=== PATIENT | female | born 1940 | race Caucasian/White ===

== ENCOUNTER 2017-09-11 16:19 | Inpatient (IN) | payer OTHER ==
[~2017-09-11] VITALS: Ht 162.6 cm; Wt 110.2 kg
--- NOTE | ~2017-09-11 | EKG ---
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
--- NOTE | ~2017-09-11 | EKG ---
[address] [place] [address] ELECTROCARDIOGRAM REPORT Name: GONZÁLEZ BOOKER Room #: 351- DIS IN M.R.#: [id number] Admission: 09/11/17 Attend Phys: Edgar Rodrigues MD Discharge: 09/14/17 Date of : 42 Report #: [id number] THIS REPORT FOR: //name// [facility] Test Date: 2017-09-14 Test Time: 10:48:20 Pat Name: GONZÁLEZ BOOKER Department: Room: [facility] Gender: F School Coordinator: ZAHRA : 1940 Requested By: Kyle Billings Order Number: [id number] MD: Davide Cottrell Measurements Intervals [place] Rate: 81 P: -4 MI: 226 QRS: -49 QRSD: 82 T: 43 QT: 399 QTc: 464 Interpretive Statements Sinus rhythm Atrial premature complex Prolonged MI interval Poor R wave progression Compared to ECG 09/13/2017 08:28:15 No significant change was found Electronically Signed On 09-14-2017 17:07:48 CDT by Davide Cottrell [email or web address] <ELECTRONICALLY SIGNED> By: Davide Cottrell MD, [facility] 09/14/17 1707 1048 1048 Davide Cottrell MD, [facility] /EPI
--- NOTE | ~2017-09-11 | HC ---
[facility] [place] [address] CONSULTATION Name: GONZÁLEZ BOOKER SRINIVASAN Room #: 351-P [facility] IN M.R.#: [id number] Admission: 09/11/17 Attend Phys: Edgar Rodrigues MD Discharge: 09/14/17 Date of : 42 Report #: [id number] THIS REPORT FOR: //name// CC: LOPEZ Rodrigues DATE OF SERVICE: 09/12/2017 HISTORY OF PRESENT ILLNESS: The patient is a 76-year-old single white female, I was asked to see in the hospital today after she had an episode of atrial fibrillation. The patient has had multiple hospitalizations here at [facility]. She actually had a heart catheterization here in 2003 that showed no significant coronary artery disease. She has a history of paroxysmal atrial fibrillation, but apparently has never been cardioverted or anticoagulated. She was here in 2012 with hemoptysis felt to be secondary to bronchitis. She has a long history of smoking. Her last hospitalization here at [facility] was in April 2016 when she had intractable pain secondary to spinal stenosis. She has a long history of lower extremity edema and stasis dermatitis. The patient states that she is not very active and uses a walker. She just quit smoking about 3 months ago. Recently, she has had increasing swelling of her feet. She also noticed some redness of the right lower extremity. Paramedics were called and she was brought here to [facility] yesterday by ambulance. She did note some chest tightness, recently arrest. It was not related to food. She does get short of breath with exertion. She denied any recent palpitations or syncope. She has had no recent fever. When she came to the hospital she was noted to be in atrial fibrillation. She was started on IV diltiazem. She converted to sinus rhythm. I was asked to see her for further evaluation and treatment. PAST MEDICAL HISTORY: Otherwise significant for hysterectomy, tonsillectomy, hypertension, diabetes. MEDICATIONS: On admission consisted of amlodipine, carvedilol, insulin, Xanax, lisinopril, atorvastatin, Lasix, Spiriva, aspirin. ALLERGIES: She has no known drug allergies. FAMILY HISTORY: Her sister of heart disease. SOCIAL HISTORY: She is , lives in [place], [place] by herself. 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 Quit smoking several months ago. No alcohol abuse. REVIEW OF SYSTEMS: She has had no history of stroke. She does have COPD. No history of liver disease. She has history of chronic kidney disease. 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 She has no history of cancer. PHYSICAL EXAMINATION: GENERAL: Revealed an elderly female sitting in a chair. She appeared in no acute distress. VITAL SIGNS: She had a blood pressure of 140/80, pulse is 70. She is afebrile. HEENT: She was anicteric, conjunctiva pink. Mucous membranes appeared dry. NECK: Veins did not appear distended. No carotid bruits. CHEST: Revealed distant breath sounds. CARDIAC: Regular rate and rhythm. No significant murmur. ABDOMEN: Obese, soft, nontender. EXTREMITIES: Had 1+ edema below the knees. The right lower anterior tibial area was erythematous. No dorsalis pedis pulse could be palpated. SKIN: Cool and dry. NEUROLOGIC: Nonfocal. LABORATORY DATA: ECG on admission yesterday showed atrial fibrillation, rapid ventricular response rate, left axis deviation, septal Q-waves. She had an echocardiogram earlier today that showed ejection fraction 60%, aortic sclerosis. Her x-rays so far, she had a portable chest x-ray on admission that showed normal heart size and clear lung mcgee. Venous duplex scan of her legs today showed no evidence of DVT. Previous CT scan of the head in 2016 showed atrophy, but no acute abnormality. Her lab work, sodium 142, potassium 4, BUN 19, creatinine 1.2, glucose 171. Liver function studies were normal. Troponin 0.04. BNP 258. White blood cell count 8.9, hemoglobin 11. IMPRESSION AND RECOMMENDATIONS: 1. Paroxysmal atrial fibrillation. I would recommend anticoagulation. I would recommend switching from carvedilol to sotalol. 2. Cellulitis. 3. Edema. Suspect venous insufficiency. 4. Hypertension. The patient has been on calcium eda, beta eda and JUANI inhibitor. 5. Diabetes. 6. Hyperlipidemia. The patient is on a statin drug 7. Previous tobacco abuse. 8. Chronic obstructive pulmonary disease. <ELECTRONICALLY SIGNED> By: Kyle Billings MD, [facility] 09/15/17 0742 1705 193 Kyle Billings MD, FAC /nt
--- NOTE | ~2017-09-11 | 2DMMODE ---
[facility] [place] [address] 2 D/M-MODE ECHOCARDIOGRAM Name: GONZÁLEZ BOOKER Room #: 351-P ADM IN M.R.#: [id number] Admission: 09/11/17 Attend Phys: Edgar Rodrigues, Discharge: Date of : 42 Date of Service: 09/12/17 0931 Report #: [id number] THIS REPORT FOR: //name// APPROVED REPORT Study performed: 09/12/2017 08:34:05 EXAM: Comprehensive 2D, Doppler, and color-flow Echocardiogram Status: routine BSA: 2.12 HR: 97 bpm BP: 142/57 mmHg Rhythm: Irregular Other Information Study Quality: Adequate/low parasternal fuel Indications Dyspnea 2D Dimensions RVDd: 35.02 mm LVEF(%): 70.92 (>50%) IVSd: 12.55 (7-11mm) LVOT Diam: 21.01 (18-24mm) LVDd: 43.69 mm PWd: 11.72 (7-11mm) LVDs: 26.20 (25-40mm) Aortic Root: 30.78 mm Trivedi's LVEF: 70.92 % Volumes Left Atrial Volume (Systole) Single Plane 4CH: 49.58 mL Single Plane 2CH: 79.48 mL LA ESV Index: 32.00 mL/m2 Aortic Valve AoV Peak Wilman.: 1.91 m/s AO Peak Gr.: 14.64 mmHg LVOT Max P.36 mmHg LVOT Max V: 1.16 m/s ANANYA Vmax: 2.10 cm2 Mitral Valve E/A Ratio: 0.9 MV Decel. Time: 315.83 ms MV E Max Wilman.: 1.15 m/s [facility] [place] [address] [place] [address] 2 D/M-MODE ECHOCARDIOGRAM Name: GONZÁLEZ BOOKER [facility] Room #: 351-P [facility] IN .R.#: [id number] Admission: 09/11/17 Attend Phys: Edgar Rodrigues, Discharge: Date of : 42 Date of Service: 09/12/17 0931 Report #: [id number] MV A Wilman.: 1.33 m/s MV PHT: 91.59 ms IVRT: 55.36 ms Pulmonary Valve PV Peak Wilman.: 1.05 m/s PV Peak Gr.: 4.38 mmHg Pulmonary Vein P Vein S: 0.81 m/s P Vein D: 0.63 m/s P Vein S/D Ratio: 1.29 Tricuspid Valve RAP Estimate: 10.00 mmHg Left Ventricle The left ventricle is normal size. There is normal LV segmental wall motion. Mild concentric left ventricular hypertrophy. Left ventricular systolic function is normal. LVEF is 60-65%. Mild diastolic dysfunction is present (impaired relaxation pattern). Right Ventricle The right ventricle is normal size. The right ventricular systolic function is normal. Atria The left atrium size is normal. The right atrium size is normal. Aortic Valve The Aortic valve is mildly sclerotic. No aortic regurgitation is present. There is no aortic valvular stenosis. Mitral Valve The mitral valve is normal in structure. Mild mitral annular calcification. There is no mitral valve regurgitation noted. No evidence of mitral valve stenosis. Tricuspid Valve The tricuspid valve is normal in structure. There is no tricuspid valve regurgitation noted. Unable to assess PA pressure. Pulmonic Valve Pulmonic valve is not well visualized. [facility] [address] [place] [address] 2 D/M-MODE ECHOCARDIOGRAM Name: GONZÁLEZ BOOKER SRINIVASAN Room #: 351-P ADM IN M.R.#: [id number] Admission: 09/11/17 Attend Phys: Edgar Rodrigues, Discharge: Date of : 42 Date of Service: 09/12/17 0931 Report #: [id number] Great Vessels The aortic root is normal in size. Ascending aorta is not well visualized. IVC is dilated and collapses >50% with inspiration. Pericardium There is no pericardial effusion. <Conclusion> The left ventricle is normal size. LVEF is 60-65%. The Aortic valve is mildly sclerotic. The mitral valve is normal in structure. Mild mitral annular calcification. There is no mitral valve regurgitation noted. No evidence of mitral valve stenosis. The tricuspid valve is normal in structure. There is no tricuspid valve regurgitation noted. Unable to assess PA pressure. Pulmonic valve is not well visualized. Ascending aorta is not well visualized. There is no pericardial effusion. <ELECTRONICALLY SIGNED> By: Teo Baugh MD 09/12/17930 0 0 Teo Baugh MD /INF
--- NOTE | ~2017-09-11 | EKG ---
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: MAURICIO : 1940 Requested By: Kyle Billings Order Number: [id number] MD: Sergei Joseph Measurements Intervals [place] Rate: 89 P: -56 MD: 209 QRS: -56 QRSD: 84 T: 71 QT: 396 QTc: 482 Interpretive Statements Sinus or ectopic atrial rhythm Atrial premature complex Inferior infarct, old Anteroseptal infarct, old Compared to ECG 09/11/2017 16:37:53 Ectopic atrial rhythm now present Atrial premature complex(es) now present Atrial fibrillation no longer present Left anterior fascicular block no longer present Myocardial infarct finding still present Electronically Signed On 09-13-2017 8:51:01 CDT by Sergei Joseph [email or web address] <ELECTRONICALLY SIGNED> By: Sergei Joseph MD 09/13/17850 7 7 Sergei Joseph MD /EPI
[~2017-09-11 16:19] MED LIST: ADVAIR HFA 1112 UNIT INH; ADVAIR HFA115 MCG/21 INH; ALBUTEROL2.5 MG/31 INH; ASPIR 8181 M1 PO; AZITHROMYCIN 2250 MG PO; CHANTIX1 MG PO; COREG6.25 MG PO; DUONEB 2.5-0.5 M3 ML INH; GLUCOPHAGE XR500 MG PO; GLUCOPHAGE500 MG PO; HUMALOG100 UNIT/1 SUBQ; HYDROCODONE-APA1 TA1 PO; K-TAB10 MEQ PO; KEFLEX500 MG PO; LASIX 20 MG TAB20 MG PO; LASIX 40 MG TAB40 M2 PO; LEVAQUIN 750 M750 MG PO; LEVEMIR SUBQ; LIDODERM 5%1 PATC1 TRANSDERM; LIPITOR20 MG PO; LISINOPRIL20 MG PO; METOPROLOL SUCC25 M1; NAPROSYN500 MG PO; NORVASC5 MG PO; NYSTATIN-TRIAMC15 GM TOP; PREDNISONE 10 M10 M1 PO; PREDNISONE 20 M20 MG PO; PRINIVIL40 MG PO; SPIRIVA18 MCG INH; TOPROL XL25 MG PO; TOPROL XL50 MG PO; TUSSIONEX PENN473 ML PO; VENTOLIN HFA 1818 GM INH; VERAPAMIL ER240 M1 PO; XANAX 0.5 MG0.5 M1 PO; ZOLOFT50 MG PO
[2017-09-11 16:20] VITALS: BP 192/84
[2017-09-11 16:55] LABS: ABSOLUTE NEUTROPHILS 8.6 thou/uL (1.4-8.2); BASOPHILS 0.9 % (0.0-2.0); EOSINOPHILS 2.1 % (0.0-3.0); HEMATOCRIT 36.8 % (37.0-47.0); LYMPHOCYTES 17.5 % (24.0-44.0); MCH 28.1 pg (26.0-34.0); MCHC 32.5 g/dL (28.0-37.0); MCV 86.2 fL (80.0-100.0); MONOCYTES 6.7 % (1.0-8.0); PLATELET COUNT 264 thou/uL (150-400); POLYS 72.8 % (36.0-66.0); RBC 4.27 mil/uL (4.20-5.00); RDW 14.6 % (10.5-14.5); WBC 11.8 thou/uL (4.0-11.0)
[2017-09-11 16:56] LABS: MANUAL DIFF NO
[2017-09-11] MEDS ORDERED: NEURONTIN 300300 M1 PO (17:05)
[2017-09-11 17:06] LABS: ANION GAP 7 mmol/L (7-16); BUN 21 mg/dL (7-18); CHLORIDE 106 mmol/L (98-107); CO2 27 mmol/L (21-32); GLUCOSE 228 mg/dL (74-106); POTASSIUM 3.7 mmol/L (3.5-5.1); SODIUM 140 mmol/L (136-145)
[2017-09-11 17:14] LABS: ALKALINE PHOSPHATASE 155 U/L (46-116); SGOT 20 U/L (15-37); SGPT 20 U/L (30-65); TOTAL BILIRUBIN 0.3 mg/dL (<0.1-1.0); TOTAL PROTEIN 7.3 g/dL (6.4-8.2); TROPONIN-I < 0.04 ng/mL (<0.04-0.07)
[2017-09-11 18:15] VITALS: BP 143/79
[2017-09-11 19:01] VITALS: BP 147/85
[2017-09-11 19:27] VITALS: BP 143/74
[2017-09-12 00:35] VITALS: BP 119/40
[2017-09-12 04:03] VITALS: BP 126/46
[2017-09-12 05:46] LABS: HEMATOCRIT 32.7 % (37.0-47.0); HEMOGLOBIN 11.1 gm/dL (12.0-15.0); MCH 29.2 pg (26.0-34.0); MCHC 33.9 g/dL (28.0-37.0); MCV 86.1 fL (80.0-100.0); RBC 3.8 mil/uL (4.20-5.00); RDW 14.6 % (10.5-14.5); WBC 8.9 thou/uL (4.0-11.0)
[2017-09-12 06:04] LABS: ANION GAP 7 mmol/L (7-16); BUN 19 mg/dL (7-18); CALCIUM 8.6 mg/dL (8.5-10.1); CHLORIDE 109 mmol/L (98-107); CO2 26 mmol/L (21-32); CREATININE 1.2 mg/dL (0.6-1.0); GLUCOSE 171 mg/dL (74-106); SODIUM 142 mmol/L (136-145); TROPONIN-I < 0.04 ng/mL (<0.04-0.07)
[2017-09-12 07:17] VITALS: BP 142/57
[2017-09-12 11:36] VITALS: BP 130/56
[2017-09-12 15:16] VITALS: BP 128/63
[2017-09-12 20:00] VITALS: BP 124/62
[2017-09-12 21:25] LABS: PROTIME 10.6 Seconds (9.3-11.4)
[2017-09-13 02:45] VITALS: BP 129/47
[2017-09-13 06:24] LABS: PROTIME 10.5 Seconds (9.3-11.4)
[2017-09-13 06:25] LABS: CALCIUM 8.9 mg/dL (8.5-10.1); CREATININE 1.2 mg/dL (0.6-1.0)
[2017-09-13 08:42] VITALS: BP 127/55
[2017-09-13 14:20] VITALS: BP 135/56
[2017-09-13 17:30] VITALS: BP 178/82
[2017-09-13 19:22] VITALS: BP 136/57
[2017-09-14 03:20] VITALS: BP 139/64
[2017-09-14 05:32] LABS: INR 1.1; PROTIME 11.4 Seconds (9.3-11.4)
[2017-09-14 07:16] VITALS: BP 151/77
[2017-09-14 11:55] VITALS: BP 135/58
[2017-09-14] MEDS ORDERED: SORINE 80 MG TA80 M1 PO (12:22)
[2017-09-14] MEDS ORDERED: CLEOCIN HCL150 MG PO (12:29)
[2017-09-14] MEDS ORDERED: COUMADIN 5 MG TA5 M1 PO (12:30)
[2017-09-14 12:44] VITALS: BP 135/58
== END 2017-09-14 14:44 | disposition home or self-care (01) | DRG 603 ==
LOC: ER 16:19 → 3W 17:59 → EROBS 17:59 → 3W 19:02
PROVIDERS: Internal Medicine; Internal Medicine Cardiovascular Disease; Physician Assistant
DX: L03.115 Cellulitis of right lower limb (principal); Z68.41 Body mass index [BMI] 40.0-44.9, adult; E11.9 Type 2 diabetes mellitus without complications; E78.00 Pure hypercholesterolemia, unspecified; I10 Essential (primary) hypertension; J44.9 Chronic obstructive pulmonary disease, unspecified; I48.0 Paroxysmal atrial fibrillation; I87.8 Other specified disorders of veins; F41.9 Anxiety disorder, unspecified; E66.9 Obesity, unspecified; Z87.891 Personal history of nicotine dependence; Z79.4 Long term (current) use of insulin; Z79.51 Long term (current) use of inhaled steroids; Z79.82 Long term (current) use of aspirin; Z79.899 Other long term (current) drug therapy; Z28.21 Immunization not carried out because of patient refusal; Z90.710 Acquired absence of both cervix and uterus; Z82.49 Family history of ischemic heart disease and other diseases of the circulatory system
CPT/HCPCS: 10779

== ENCOUNTER 2020-06-06 13:00 | Inpatient (IN) | payer OTHER ==
[~2020-06-06] VITALS: Ht 162.6 cm; Wt 105.2 kg
--- NOTE | ~2020-06-06 | EMS ---
[address] [address] EMS Patient Care Report Name: GONZÁLEZ BOOKER Room #: 462-P [facility] IN M.R.#: [id number] Admission: 06/06/20 Attend Phys: Keo Calderon MD Discharge: 06/12/20 Date of : 42 Report #: [id number] THIS REPORT FOR: //name// Report Transmitted: 06/14/2020 13:30 EMS Care Summary [place], [place]/[facility] Incident [id number] @ 06/06/2020 12:19 Incident Location [id number] [place] [address] Patient GONZÁLEZ BOOKER Female, 79 Years 1940 Patient Address [address] [place], [place] [id number] Patient History Diabetes,Hypertension (HTN),Hyperlipidemia,Type 2 Diabetes, Patient Allergies Sulfa,Other drug allergy, Patient Medications Lisinopril, Amlodipine, Atorvastatin, Albuterol, Novolog, Advair, ASA, Alprazolam, Ventolin, Levemir, Spiriva, Furosemide, Gabapentin, Chief Complaint I fell and have been on the floor all night Disposition Transported No Lights/[place] Dispatch Reason Falls Transported To [facility] Narrative Called to the scene for a fall. Upon arrival, P42 on the scene. Pt is ARROYO x 3 sitting on the ground. It was reported she fell last night tripping over her [facility] [address] [place] [address] EMS Patient Care Report Name: GONZÁLEZ BOOKER Room #: 462-P [facility] IN M.R.#: [id number] Admission: 06/06/20 Attend Phys: Keo Calderon MD Discharge: 06/12/20 Date of : 42 Report #: [id number] chair. She says she hurts all over, but nothing new. She is incontinent. She was moved to the EMS cot and loaded into the ambulance w/o incident. Vitals obtained. 20g IV & D-stick. 500cc NS given for elevated BS levels. Vitals repeated. En route: no changes. RR to [facility]. Vitals repeated. Arrived: pt taken to ER #4 and moved to their bed w/o incident. Pt care & report to ER staff. Initial Vitals @12:38P: 97,R: 16,BP: 183/77,Pain: 4/10,GCS: 15,SpO2: 97,Revised Trauma: 12, @12:52P: 79,R: 16,BP: 165/80,Pain: 4/10,GCS: 15,Glucose: 343,SpO2: 96,Revised Trauma: 12, @12:42P: 99,R: 16,BP: 156/105,Pain: 4/10,GCS: 15,Glucose: -2,CO: 0,SpO2: 98,Revised Trauma: 12, Assessments @12:29MENTAL:Person Oriented,Time Oriented,Event Oriented,Place Oriented,SKIN:HEENT:LUNG SOUNDS:ABDOMEN:PELVIS//GI:Incontinence,EXTREMITIES:Left Arm: No Abnormalities,Right Arm: No Abnormalities,Left Leg: No Abnormalities,Right Leg: No Abnormalities,PULSE:NEURO: Impression Diabetic Hyperglycemia Procedures @12:40Normal Saline (.9% NaCl) 500cc (20 ga) Site: Forearm-RightResponse: UnchangedSucceeded@12:34StretcherResponse: Unchanged@12:29ALS AssessmentResponse: UnchangedSucceeded Timeline 12:17,Call Received 12:17,Dispatch Notified 12:19,Dispatched 12:19,En Route 12:27,On Scene 12:29,At Patient 12:29,ALS Assessment,Response: UnchangedSucceeded, 12:34,Stretcher,Response: Unchanged 12:38,BP: 183/77 M,PULSE: 97,RR: 16 R,SPO2: 97 Ox,ETCO2: ,BG: ,PAIN: 4,GCS: 15, 12:40,Normal Saline (.9% NaCl) 500cc 20 ga Site: Forearm-Right,Response: UnchangedSucceeded, 12:42,BP: 156/105 M,PULSE: 99,RR: 16 R,SPO2: 98 Ox,ETCO2: ,BG: -2,PAIN: 4,GCS: 15, 12:43,Depart Scene 12:52,BP: 165/80 M,PULSE: 79,RR: 16 R,SPO2: 96 Ox,ETCO2: ,B,PAIN: 4,GCS: 15, [address] [address] EMS Patient Care Report Name: GONZÁLEZ BOOKER [facility] Room #: 462-P DIS IN M.R.#: [id number] Admission: 06/06/20 Attend Phys: Keo Calderon MD Discharge: 06/12/20 Date of : 42 Report #: [id number] 12:55,At Destination 13:18,Call Closed Disclaimer v1.1 Copyright 2020 [employer] This EMS Care Summary contains data elements from the applicable legal record (which may be displayed differently). It is designed to provide pertinent information for the following purposes: continuity of care, clinical quality, and state data reporting. The complete legal record is available to ED staff and administrators of the receiving hospital in [employer]'s Patient Tracker. All data is provided "as is."
[2020-06-06 13:00] VITALS: BP 165/74
[~2020-06-06 13:00] MED LIST changes: +CLEOCIN HCL150 MG PO; +COUMADIN 5 MG TA5 M1 PO; +NEURONTIN 300300 M1 PO; +SORINE 80 MG TA80 M1 PO
[2020-06-06 13:25] LABS: ABSOLUTE NEUTROPHILS 7.3 thou/uL (1.4-8.2); BASOPHILS 0.7 % (0.0-2.0); EOSINOPHILS 0.3 % (0.0-3.0); HEMATOCRIT 39.4 % (37.0-47.0); HEMOGLOBIN 13.1 gm/dL (12.0-15.0); LYMPHOCYTES 12.6 % (24.0-44.0); MCH 29.6 pg (26.0-34.0); MCHC 33.3 g/dL (28.0-37.0); MCV 88.9 fL (80.0-100.0); MONOCYTES 7.8 % (1.0-8.0); PLATELET COUNT 287 thou/uL (150-400); POLYS 78.6 % (36.0-66.0); RBC 4.44 mil/uL (4.20-5.00); RDW 14.9 % (10.5-14.5); WBC 9.3 thou/uL (4.0-11.0)
[2020-06-06 13:40] LABS: URINE BILIRUBIN NEGATIVE (Negative); URINE BLOOD 2+ (Negative); URINE CLARITY SL HAZY; URINE COLOR YELLOW; URINE GLUCOSE-RANDOM* 3+ (Negative); URINE KETONES NEGATIVE (Negative); URINE LEUKOCYTES-REFLEX 2+ (Negative); URINE NITRITE-REFLEX NEGATIVE (Negative); URINE PROTEIN (DIPSTICK) 1+ (Negative); URINE UROBILINOGEN 0.2 E.U./dl (0.2-1.0)
[2020-06-06 13:44] LABS: CALCIUM 9.7 mg/dL (8.5-10.1); CREATININE 1.8 mg/dL (0.6-1.0); MAGNESIUM 2.4 mg/dL (1.8-2.4); POTASSIUM 5.1 mmol/L (3.5-5.1)
[2020-06-06 13:52] LABS: BACTERIA-REFLEX >30 Many /HPF (None Seen); CASTS None Seen /LPF (None Seen); SQUAMOUS 0-3 Few /LPF (0-3); URINE RBC 3-10 Few /HPF (0-2); URINE WBC-REFLEX >25 Many /HPF (0-5)
[2020-06-06 13:54] LABS: CRYSTALS None Seen /LPF (None Seen)
[2020-06-06 14:27] LABS: PROTIME 10.6 Seconds (9.3-11.4)
[2020-06-06] MEDS ORDERED: XARELTO10 M1 PO (14:28)
--- NOTE | 2020-06-06 16:46 | EKG ---
[facility] [place] [address] ELECTROCARDIOGRAM REPORT Name: GONZÁLEZ BOOKER SRINIVASAN Room #: REG M.R.#: [id number] Admission: 06/06/20 Attend Phys: Discharge: Date of : 42 Report #: [id number] THIS REPORT FOR: cc: Jean Pierre Sanford MD, Douglas James MD Lundgren,Davide White MD [facility] THIS REPORT FOR: //name// [facility] ED Test Date: 2020-06-06 Test Time: 13:25:13 Pat Name: GONZÁLEZ BOOKER Department: Room: Gender: F Trimming Operator: [facility] : 1940 Requested By: Mason De La Paz Order Number: [id number] MD: Davide Cottrell Measurements Intervals [place] Rate: 98 P: -52 OR: 121 QRS: -53 QRSD: 90 T: 73 QT: 370 QTc: 473 Interpretive Statements Sinus rhythm Left anterior fascicular block Poor R wave progression Compared to ECG 09/14/2017 10:48:20 No significant change was found Electronically Signed On 06-06-2020 16:46:14 CDT by Davide Cottrell [email or web address] <ELECTRONICALLY SIGNED> By: Davide Cottrell MD, FACC 06/06/20 1646 1325 1325 Davide Cottrell MD, [facility] /EPI
[2020-06-06 18:13] VITALS: BP 134/41
[2020-06-06 18:45] VITALS: BP 113/48
--- NOTE | 2020-06-06 20:56 | NUR ---
PATIENT ARRIVED ON THE UNIT AT 1920 FROM ER, ADMITTED FOR UTI, VENECIA, HYPERGLYCEMIA, AND GENERALIZED WEAKNESS, SHE FELL AT HOME LAST NIGHT. PATIENT ALERT WITH SOME CONFUSION. PATIENT C/O PAIN WITH GERMAN. LEGS, MORPHINE 4 MG IV GIVEN PRIOR TO COMING UP FROM ER. REPORT FROM MARIKA/RN. ADMISSION DONE, WILL REPORT OFF TO ROSY/RN.
--- NOTE | 2020-06-07 04:31 | NUR ---
FALL PRECAUTION IN PLACE. ASSESSMENT CHARTED. PT DENIED ANY SIGNIFICANT PAIN. PT DENIED NAUSEA OR SOA. ORDERS RECEICED AND STARTED. PT WAS ABLE TO GET COMFORTABLE SLEEP PART OF THE SHIFT. VSS AND NO S/S OF ACUTE DISTRESS. WILL CONTINUE TO MONITOR.
[2020-06-07 04:46] VITALS: BP 117/52
[2020-06-07 05:52] LABS: HEMATOCRIT 34.7 % (37.0-47.0); HEMOGLOBIN 11.5 gm/dL (12.0-15.0); MCH 29.7 pg (26.0-34.0); MCV 89.9 fL (80.0-100.0); RBC 3.86 mil/uL (4.20-5.00); RDW 15.2 % (10.5-14.5); WBC 7.5 thou/uL (4.0-11.0)
[2020-06-07 06:22] LABS: ALBUMIN 2.5 g/dL (3.4-5.0); CALCIUM 8.5 mg/dL (8.5-10.1); CREATININE 1.5 mg/dL (0.6-1.0); POTASSIUM 4.7 mmol/L (3.5-5.1); TOTAL BILIRUBIN 0.3 mg/dL (0.2-1.0); TOTAL PROTEIN 6.1 g/dL (6.4-8.2)
[2020-06-07 08:00] VITALS: BP 119/50
--- NOTE | 2020-06-07 11:49 | NUR ---
Received awake on bed. Due medications given as prescribed, able to swallow meds w/o difficulty. On room air. Vital signs stable. On heart healthy diet- tolerating well; no nausea, no vomiting and no abdominal pain noted; diet modified to Heart healthy, carb controlled diet. A+Ox4, forgetful; re-oriented from time to time. On blood sugar monitoring- taken and recorded; with sliding scale insulin ordered- given as prescribed. Continent of bowel and bladder- able to use bedside commode, with gait belt and moderate assist. With NS at 100cc/hr, infusing well at L FA. With bruises at forearm from fall at home, not bleeding, no signs of infection noted. Falls bundle in place. Assisted in ADLs. With consult to [employer] Plant Operator- US called in consult, pt seen and examined by Dr Jimenez. Pt seen and examined by Dr Calderon- for PT/OT/ST evaluation- orders made; a./w pt to be seen. Complained of pain, due PRN pain meds given as prescribed. Pt's daughter Brook Anton called this AM, update given. With pharmacist consult for medication reconcilation by night warehouse selector nurse, med rec done at ER but some meds missing as per night warehouse selector nurse and pt unable to recall meds. Able to sit out on the chair, falls bundle in place. Pt seen and examined by ST, passed swallow test- therapist suggested for GI consult- Dr Calderon informed, a/w orders. To continue monitoring patient.
[2020-06-07 15:18] VITALS: BP 111/51
--- NOTE | 2020-06-07 16:23 | NUR ---
PT ADMITTED RELATED TO UTI, VENECIA, HYPERGLYCEMIA, GENERALIZED WEAKNESS. CM REVIEWED CHART AND SPOKE WITH CARE TEAM. CM MET WITH PT AT BEDSIDE THIS DAY. PT IS A&O X4. CM ROLE INTRODUCED. PT INDICATED SHE LIVES ALONE IN [facility]. SHE INDICATED SHE HAS ELEVATOR ACCESS. 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 PT INDICATED SHE HAD [facility] IN THE PAST. PT INDICATED SHE HAS HER MEDS PACKED UP BY [facility]. PT INDICATED SHE WOULD BE RECEPTIVE TO HH OR POST ACUTE CARE STAY WHATEVER IS RECOMMENDED. CM TO FOLLOW INDICATED WITH DC PLANNING.
[2020-06-07 20:55] VITALS: BP 138/58
[2020-06-08 03:06] LABS: GLYCOHEMOGLOBIN (HGB A1C) 11.9 % (4.8-5.6)
--- NOTE | 2020-06-08 05:03 | NUR ---
ASSUMED CARE OF PT AT 1900HRS. PT AOX4 WITH SOME FORGETFULNESS. FALL PRECAUTION IN PLACE. ASSESSMENT CHARTED. PT DENIED NAUSEA OR SOA. PT WAS ABLE TO GET COMFORTABLE AND SLEEP PART OF THE SHIFT. VSS AND NO S/S OF ACUTE DISTRESS. WILL CONTINUE TO MONITOR.
[2020-06-08 07:58] VITALS: BP 125/65
--- NOTE | 2020-06-08 12:13 | HC ---
[facility] [place] [address] CONSULTATION Name: GONZÁLEZ BOOKER Room #: 462-P ADM IN M.R.#: [id number] Admission: 06/06/20 Attend Phys: Keo Calderon MD Discharge: Date of : 42 Report #: [id number] THIS REPORT FOR: cc: Jean Pierre Sanford MD,Akin Irby MD, MD ~ CC: Keo Sanford DATE OF SERVICE: 06/07/2020 ENDOCRINE CONSULTATION NOTE CONSULTING PHYSICIAN: Dr. Calderon. REASON FOR CONSULTATION: Uncontrolled type 2 diabetes mellitus. HISTORY OF PRESENT ILLNESS: This is a 79-year-old female patient whose medical background is significant for multiple medical issues including type 2 diabetes mellitus, hypertension, hyperlipidemia, as well as diabetic neuropathy and COPD. The patient presented here following a fall off of her reclining chair. It does not appear to have been associated with loss of consciousness, seizure activity or dizziness. The patient's history of type 2 diabetes mellitus dates back to over 20 years ago and she is currently maintained on a combination of Levemir insulin 30 units twice a day as well as NovoLog insulin 25 units before meals, but she admits that she hardly ever takes the lunch dose for this. The patient does not monitor her blood glucose values at home, hardly ever out of frustration with the fact that they are typically in the 300-400 range. She does not recall frequent or severe issues with hypoglycemia, but she does have occasional hypoglycemic symptoms which are easily remedied by food intake. The patient did have a cataract surgery, but is not aware of the complication of diabetic retinopathy. She has not been told in specific terms that she has chronic kidney disease and she is not aware of active heart disease. The patient does, however, deal with diabetic neuropathy and his gabapentin therapy with only partial relief to this issue. REVIEW OF SYSTEMS: CONSTITUTIONAL: Fatigue, tiredness. No fever, chills or body weight changes. HEENT: Negative for sore throat, sinus pain or ear drainage. PULMONARY: Occasional shortness of breath, dyspnea on exertion, intermittent cough, but no hemoptysis. CARDIAC: Negative for chest pain, palpitations, syncope or presyncope. Noted for dyspnea on exertion. [address] [address] CONSULTATION Name: GONZÁLEZ BOOKER SRINIVASAN Room #: 462-P [facility] IN M.R.#: [id number] Admission: 06/06/20 Attend Phys: Keo Calderon MD Discharge: Date of : 42 Report #: [id number] GASTROINTESTINAL: Occasional abdominal discomfort and nausea, but no vomiting or significant changes in bowel movement frequency. NEUROLOGY: Baseline issues with peripheral diabetic neuropathy. Negative for seizure activity, loss of consciousness. DERMATOLOGIC: Negative for skin rash, ulceration, discoloration or other major abnormalities. PAST MEDICAL HISTORY: 1. Type 2 diabetes mellitus. 2. Cataracts. 3. Peripheral diabetic neuropathy. 4. Hyperlipidemia. 5. Hypertension. 6. Chronic obstructive pulmonary disease. 7. Osteoarthritis. 8. Morbid obesity. OUTPATIENT MEDICATIONS: Include amlodipine 5 mg daily, Levemir insulin 30 units twice a day, Humalog insulin 25 units with breakfast and dinner, gabapentin 600 mg t.i.d., Xarelto 1 tab daily, Xanax 0.5 mg at bedtime, Prinivil 40 mg daily, Lipitor 20 mg at bedtime, Lasix 40 mg daily, Spiriva 1 cap daily, Advair 2 puffs b.i.d., aspirin 81 mg at bedtime. ALLERGIES: CITALOPRAM and SULFA. FAMILY HISTORY: Noncontributory. SOCIAL HISTORY: The patient lives alone. She has 3 children. She has a close-knit family with people checking on her almost daily. She is an ex-smoker, but she smoked for many years. Denies use of alcohol or illicit drugs. PHYSICAL EXAMINATION: GENERAL: Pleasant female patient who is not in apparent pain or distress. VITAL SIGNS: Blood pressure is 119/50 mmHg, heart rate is 79 beats per minute, respirations 20 per minute, temperature 36.6 degrees Celsius. CONSTITUTIONAL: She is sitting upright in her reclining chair, appears comfortable, not in apparent distress. HEENT: Anicteric sclerae. Intact extraocular motions. NECK: Supple, no JVD, no thyromegaly. CHEST: Noted for moderate air entry bilaterally with scattered rales. No wheezes. HEART: Regular rate and rhythm without murmurs. ABDOMEN: Soft, lax. No guarding. Active bowel sounds. EXTREMITIES: Lower extremity exam is noted for trace ankle edema bilaterally. [address] [address] CONSULTATION Name: BOOKERGONZÁLEZ Room #: 462-P [facility] IN M.R.#: [id number] Admission: 06/06/20 Attend Phys: Keo Calderon MD Discharge: Date of : 42 Report #: [id number] No skin breaks. NEUROLOGIC: Awake, alert and oriented to time, place and person. The remainder of her examination is nonfocal other than for peripheral sensory deficits. PSYCHIATRIC: Pleasant, interactive. Normal mood and affect. LABORATORY RESULTS: Blood glucose on arrival was 437 mg/dL responded to a bolus of IV insulin. She is down to 279 mg/dL this morning. Sodium 139, potassium 4.7, chloride 105, CO2 of 28, anion gap 6, BUN 33, creatinine 1.5, glucose 317, AST 13, lipase 74, total bilirubin 0.3, calcium 8.5, phosphorus 3.9, magnesium 2.4, alkaline phosphatase 112, ALT 16, total protein 6.1, albumin 2.5, EGFR 34. White blood count 7.5, hemoglobin 11.5, hematocrit 34.7, platelets 248. Hemoglobin A1c is ordered and is pending. Historically in 2003, 2012 and 2015, her hemoglobin A1c ranged from 8.0-8.2. ASSESSMENT AND PLAN: 1. Type 2 diabetes mellitus. Unfortunately, there is essentially no blood glucose data to clearly highlight her current state of control, but by the glimpses of severe hyperglycemia including upon her presentation, it is fair to assume that she is under inadequate control. The patient and I had a lengthy discussion about the pathogenesis of type 2 diabetes mellitus, as well as about the necessity of achieving and maintaining adequate control to avoid diabetic complications in the future. The patient did give an indication that she was not entirely committed to the current insulin therapy. That said, my preference would be to resume her supposed insulin regimen of Lantus insulin 30 units twice a day as well as Humalog insulin 25 units before meals, while providing support with Humalog supplemental scale low intensity and monitoring her blood glucose a.c. and at bedtime while we obtain a hemoglobin A1c. Once we establish a better understanding of her glycemic pattern and insulin responsiveness, specific therapeutic changes can be made. 2. Diabetic neuropathy. The patient has a longstanding history of diabetic neuropathy that is partially controlled by gabapentin. She is to continue with this regimen during this hospital stay. 3. Hypertension. The patient is maintained on her usual regimen of lisinopril and Norvasc with adequate control, she is to continue with the same. I certainly appreciate this consultation by Dr. Calderon. <ELECTRONICALLY SIGNED> By: Akin Perdomo MD 06/08/20 1213 1201 [id number] Akin Perdomo MD /nt
[2020-06-08 13:17] LABS: CALCIUM 8.4 mg/dL (8.5-10.1); CREATININE 1.1 mg/dL (0.6-1.0); POTASSIUM 4.4 mmol/L (3.5-5.1)
--- NOTE | 2020-06-08 16:20 | NUR ---
CM PROVIDED [facility] LIST FOR REVIEW THIS AM. CM FOLLOWED UP AND PROVIDED [facility] WELL FOR PT TO COMPARE. NO REFERRALS HAVE BEEN SENT OF THIS TIME. AWAITING PT'S CHOICES.
[2020-06-08 16:39] VITALS: BP 147/76
--- NOTE | 2020-06-08 16:41 | NUR ---
PT AOX4 BUT FORGETFUL. OFTEN FORGETS TO CALL FOR ASSIST. PT STATES SHE DOES NOT NEED FALL ALARMS IN PLACE. REPORTS THAT THE CHAIR SHE WAS SITTING IN AT HOME THREW HER AND THAT'S WHY SHE FELL. ENCOURAGED TO CALL FOR ASSIST. PT REPORTS THAT SHE DOES NOT FEEL THAT SHE IS STRONG ENOUGH TO GO HOME ALONE AT THIS TIME. PHYSICIAN AWARE OF PT CONCERNS. PT/OT WORKING WITH PT AND CM ON BOARD TO ASSIST WITH DC PLANNING AND REHAB OPTIONS. FALL PRECAUTIONS IN PLACE.
[2020-06-08 20:12] VITALS: BP 154/72
--- NOTE | 2020-06-09 04:24 | NUR ---
ASSUMED CARE OF PT AT 1900HRS. PT AOX4 AND LETS NEEDS BE KNOWN. FALL PRECAUTION IN PLACE. ASSESSMENT CHARTED. PT REPORTED PAIN AND WAS TREATED WITH PRNS. PT DENIED NAUSEA OR SOA. PT'S BS WAS BETTER MAINTAINED THIS SHIFT AND PREVIOUS SHIFT. PT WAS ABLE TO GET COMFORTABLE AND SLEEP PART OF THE SHIFT. NO S/S OF ACUTE DISTRESS. WILL CONTINUE TO MONITOR FOR CHANGES.
[2020-06-09 09:42] VITALS: BP 149/61
--- NOTE | 2020-06-09 11:58 | NUR ---
CM FOLLOWED UP WITH PT THIS AM. REFERRALS SENT TO [facility] AND [facility] FOR REVIEW FOR POSSIBLE ADMISSION. CM NOTIFIED [facility] LIAISON OF REFERRAL. AWAITING RESPONSE AND INSURANCE AUTH.
--- NOTE | 2020-06-09 12:47 | NUR ---
Received awake on bed. Due medications given as prescribed, able to swallow meds w/o difficulty. On room air. Vital signs stable. A+Ox4, forgetful; re-oriented from time to time. On carb controlled diet- tolerating well; assisted and encouraged in eating; no nausea, no vomiting and no abdominal pain noted. Pt complained of throat itchess, PRN cough drop given as prescribed. On blood sugar monitoring- taken and recorded accordingly; with sliding scale insulin ordered. Continent of bowel and bladder, able to go to the toilet using walker, gait belt and minimum assist. With SL at L AC- intact and flushing well. Assisted in ADLs. Falls bundle in place. Pt requested to talk to CM, requesting to go home instead of Rehab- Dr Calderon and CM informed; a/w PT/OT evaluation and input as well. Able to sit out on the chair today. To continue monitoring patient.
--- NOTE | 2020-06-09 14:09 | NUR ---
FAXED REFERRAL TO [facility] SPOKE WITH [facility] IN ADM SHE RECEIVED AND WILL ACCEPT SHE WILL SUBMIT FOR AUTH AND WTG ON COVID RESULT. PLEASE FAX DC ORDERS/SUMMARY TO FACILITY [phone] AND CALL [phone] NOTIFY OF DISCHARGE.
--- NOTE | 2020-06-09 15:14 | NUR ---
[facility] IS ABLE TO ACCEPT PT AND HAVE SUBMITTED FOR INSURANCE AUTH. SHOULD AUTH BE RECIEVED OVER WEEKEND CONTACT [facility] AT TO ARRANGED TRANSPORT. FAX ORDERS TO CALL REPORT TO OR .
[2020-06-09 16:47] VITALS: BP 146/63
--- NOTE | 2020-06-10 03:43 | NUR ---
PATIENT ALERT AND ORIENTED X4. UP WITH SBA AND WALKER TO THE BATHROOM. COOPERATIVE WITH CARE. BS MONITORED PER ORDER. [facility] SHE DID NOT EAT MUCH FOR DINNER, PER PATIENT. BS MONITORED PER ORDER. PLEASANT AND COOPERATIVE. RESTING QUIETLY. WILL MONITOR.
[2020-06-10 07:17] VITALS: BP 168/55
--- NOTE | 2020-06-10 13:45 | NUR ---
Received awake on bed. Due medications given as prescribed, able to swallow meds w/o difficulty. On room air. Vital signs stable. A+Ox4. On carb controlled diet- tolerating well; no nausea, no vomiting and no abdominal pain noted. On blood sugar monitoring- taken and recorded accordingly; with sliding scale insulin ordered- given as prescribed. Continent of bowel and bladder, able to go to the toilet using gait belt and walker. Falls bundle in place. Assisted in ADLs. With SL at L FA- on IV antibiotics. Still a/w insurance authorization for facility- pt and physician updated. No complaints of pain made. Able to sit on the chair and walk around the room with assistance. To continue monitoring patient.
[2020-06-10 15:42] VITALS: BP 129/50
--- NOTE | 2020-06-11 02:52 | NUR ---
PATIENT ALERT AND ORIENTED X4. UP WITH SBA AND WALKER TO BATHROOM. DENIES PAIN. NOT BOTHERED WITH COUGH TOO MUCH TONIGHT. TOLERATING DIET ALTHOUGH PATIENT DOES NOT ENJOY THIS HOSPITAL FOOD. BS MONITORED PER ORDER, WAS 166 AT DINNER AND WAS GIVEN STANDING ORDER OF LANTUS, HOWEVER, REFUSED 3U OF LISPRO SHE DID NOT WANT HER BLOOD SUGAR TO DROP TOO LOW. WILL MONITOR. DISCHARGE PLANS TO [facility] ON FRIDAY. RESTING QUIETLY.
[2020-06-11 08:05] VITALS: BP 139/68
--- NOTE | 2020-06-11 11:20 | NUR ---
As soon as finishing conversation with disease case manager Lauren, the staff put a stat COVID order in and called the lab, was told the earliest COVID result would not come out until 6:30 pm to 7pm.
[2020-06-11 15:31] VITALS: BP 150/59
--- NOTE | 2020-06-11 19:16 | NUR ---
A/O, calm and cooperative. afebrile. awaiting COVID result.
[2020-06-11 20:27] VITALS: BP 158/74
--- NOTE | 2020-06-12 03:34 | NUR ---
ASSUMED CARE OF PT AT 1900. PT IS A/O X4. ABLE TO MAKE NEEDS KNOWN. VSS. NO COMPLAINTS OF PAIN OR DISCOMFORT. FALL PRECAUTIONS ARE IN PLACE, CALL LIGHT IS WITHIN REACH. PT IS CURRENTLY IN HER BED AND APPEARS TO BE SLEEPING AT THIS TIME. WILL CONTINUE TO MONITOR.
[2020-06-12 07:44] VITALS: BP 143/50
[2020-06-12 09:04] VITALS: BP 143/50
[2020-06-12] MEDS ORDERED: NYSTATIN-TRIAMC15 GM TOP (10:02)
[2020-06-12] MEDS ORDERED: LANTUS SUBQ (10:02)
[2020-06-12] MEDS ORDERED: HUMALOG100 UNIT/1 SUBQ ×2 (10:02)
[2020-06-12] MEDS ORDERED: CLEARLAX17 GM PO (10:10)
[2020-06-12] MEDS ORDERED: KEFLEX500 M1 PO (10:11)
--- NOTE | 2020-06-12 10:33 | NUR ---
[facility] WAS RECIEVED S[facility]HY[facility] GALEANO RECEIVED FAXED RESULTS. CARE TEAM INDICATED PT IS MEDICALLY STABLE TO DC TO [facility] THIS DAY. WHEEL[facility]IR [facility] TRANSPORT ARRANGED FOR 12:00. PT'S FAMILY ARE AWARE AND AGREEABLE AND HAVE PROVIDED BELONGINGS FOR PT TO TAKE WITH HER TO REHAB. CHART COPY MADE. ORDERS TO BE FAXED ONCE MEDS FINALIZED. NO OTHER CM INTERVENTION INDICATED. CASE CLOSED.
--- NOTE | 2020-06-12 12:02 | NUR ---
Assumed patient care at 0715. Vital signs stable, LSCTA (diminished), ABD soft and non-tender, BS x's 4; she denies pain. Patient has a yeast infection under her pannus and breasts; Nystatin Cream has been used BID for this. Blood sugars have not required any extra Insulin support. Received Discharge Orders today. Patient left at 1200. She went to [facility]. Report given to Tanika at 1210 ([facility] Nurse).
== END 2020-06-12 12:00 | DRG 871 ==
LOC: ER 13:00 → 4W 18:05 → EROBS 18:05 → 4W 19:08
PROVIDERS: Emergency Medicine; Internal Medicine; ADMIT Hospitalist; ATTEND Hospitalist
DX: A41.9 Sepsis, unspecified organism (principal); E43 Unspecified severe protein-calorie malnutrition; N17.0 Acute kidney failure with tubular necrosis; L03.115 Cellulitis of right lower limb; Z68.41 Body mass index [BMI] 40.0-44.9, adult; N39.0 Urinary tract infection, site not specified; E11.65 Type 2 diabetes mellitus with hyperglycemia; I48.91 Unspecified atrial fibrillation; E66.01 Morbid (severe) obesity due to excess calories; E78.00 Pure hypercholesterolemia, unspecified; I10 Essential (primary) hypertension; E11.40 Type 2 diabetes mellitus with diabetic neuropathy, unspecified; J44.9 Chronic obstructive pulmonary disease, unspecified; E78.5 Hyperlipidemia, unspecified; M19.90 Unspecified osteoarthritis, unspecified site; M62.84 Sarcopenia; G47.00 Insomnia, unspecified; R19.7 Diarrhea, unspecified; N39.41 Urge incontinence; E86.0 Dehydration; B96.20 Unspecified Escherichia coli [E. coli] as the cause of diseases classified elsewhere; Z91.14 Patient's other noncompliance with medication regimen; Z79.4 Long term (current) use of insulin; Z79.82 Long term (current) use of aspirin; Z79.899 Other long term (current) drug therapy; Z88.2 Allergy status to sulfonamides; Z87.891 Personal history of nicotine dependence; Z03.818 Encounter for observation for suspected exposure to other biological agents ruled out
CPT/HCPCS: 10040

== ENCOUNTER 2021-05-10 11:14 | Inpatient (IN) | payer OTHER ==
[~2021-05-10] VITALS: Ht 162.6 cm; Wt 106.8 kg
[2021-05-10 11:14] VITALS: BP 157/71
[~2021-05-10 11:14] MED LIST changes: +CLEARLAX17 GM PO; +KEFLEX500 M1 PO; +LANTUS SUBQ; +XARELTO15 MG PO
[2021-05-10 12:20] LABS: URINE BILIRUBIN NEGATIVE (Negative); URINE BLOOD 3+ (Negative); URINE CLARITY CLEAR; URINE COLOR YELLOW; URINE GLUCOSE-RANDOM* 3+ (Negative); URINE KETONES NEGATIVE (Negative); URINE LEUKOCYTES-REFLEX TRACE (Negative); URINE NITRITE-REFLEX NEGATIVE (Negative); URINE PROTEIN (DIPSTICK) NEGATIVE (Negative); URINE SPECIFIC GRAVITY 1.015 (1.005-1.035); URINE UROBILINOGEN 0.2 E.U./dl (0.2-1.0)
[2021-05-10 12:43] LABS: CASTS None Seen /LPF (None Seen); SQUAMOUS 0-3 Few /LPF (0-3)
[2021-05-10 12:44] LABS: URINE WBC-REFLEX 0-5 Rare /HPF (0-5)
[2021-05-10 12:45] LABS: BACTERIA-REFLEX 1-9 Few /HPF (None Seen)
[2021-05-10 12:46] LABS: CRYSTALS None Seen /LPF (None Seen); YEAST-REFLEX Present (None Seen)
[2021-05-10 13:20] LABS: BASOPHILS 0.6 % (0.0-2.0); EOSINOPHILS 1.7 % (0.0-3.0); HEMATOCRIT 35.5 % (37.0-47.0); HEMOGLOBIN 11.6 gm/dL (12.0-15.0); LYMPHOCYTES 13.3 % (24.0-44.0); MCH 28.9 pg (26.0-34.0); MCHC 32.6 g/dL (28.0-37.0); MCV 88.6 fL (80.0-100.0); MONOCYTES 6.9 % (1.0-8.0); PLATELET COUNT 264 thou/uL (150-400); POLYS 77.5 % (36.0-66.0); RBC 4.01 mil/uL (4.20-5.00); RDW 14.8 % (10.5-14.5); WBC 11.6 thou/uL (4.0-11.0)
[2021-05-10 13:32] LABS: ANION GAP 7 mmol/L (7-16); BUN 23 mg/dL (7-18); CALCIUM 8.8 mg/dL (8.5-10.1); CHLORIDE 105 mmol/L (98-107); CO2 30 mmol/L (21-32); CREATININE 1.1 mg/dL (0.6-1.0); GLUCOSE 223 mg/dL (74-106); POTASSIUM 4.5 mmol/L (3.5-5.1); SODIUM 142 mmol/L (136-145)
[2021-05-10 13:45] LABS: ALBUMIN 2.9 g/dL (3.4-5.0); SGOT 17 U/L (15-37); SGPT 17 U/L (14-59); TOTAL BILIRUBIN 0.4 mg/dL (0.2-1.0); TOTAL PROTEIN 7.3 g/dL (6.4-8.2); TROPONIN-I <0.06 ng/mL (<0.06)
[2021-05-10 17:32] VITALS: BP 140/50
--- NOTE | 2021-05-10 18:25 | NUR ---
PT ADMIT FROM ED TO 4W AT APPROX 1810. PT AFEBRILE, NO UOP FOR ME, NO BM, APPROPRIATE APPETITE. PT ABLE TO WALK WITH ASSISTANCE. AFIB ON TELE. PT HAS BEEN THOUROUGHLY UPDATED AND EDUCATED ON PT CONDITION AND POC. PT PROGRESSING TOWARDS POC.
[2021-05-10 20:03] VITALS: BP 153/60
[2021-05-11 05:02] LABS: ABSOLUTE NEUTROPHILS 8.1 thou/uL (1.4-8.2); BASOPHILS 0.9 % (0.0-2.0); EOSINOPHILS 2.5 % (0.0-3.0); HEMATOCRIT 34.4 % (37.0-47.0); HEMOGLOBIN 11.4 gm/dL (12.0-15.0); LYMPHOCYTES 11.9 % (24.0-44.0); MCH 29.3 pg (26.0-34.0); MCHC 33.2 g/dL (28.0-37.0); MCV 88.5 fL (80.0-100.0); MONOCYTES 7.6 % (1.0-8.0); PLATELET COUNT 265 thou/uL (150-400); POLYS 77.1 % (36.0-66.0); RBC 3.88 mil/uL (4.20-5.00); RDW 14.5 % (10.5-14.5); WBC 10.5 thou/uL (4.0-11.0)
[2021-05-11 05:05] LABS: HCO3 20.3 mmol/L (22.0-26.0); PCO2 34.3 mmHg (35.0-45.0); PO2 294.3 mmHg (80.0-100.0); sO2 99.7 % (92.0-98.0)
[2021-05-11 05:30] LABS: CALCIUM 8.4 mg/dL (8.5-10.1); CREATININE 1.3 mg/dL (0.6-1.0); MAGNESIUM 2.2 mg/dL (1.8-2.4); POTASSIUM 4.6 mmol/L (3.5-5.1)
--- NOTE | 2021-05-11 05:44 | NUR ---
PT IS ALERT AND ORIENTED X4. TRANSFER FROM [facility]. PT IS COARSE TO DIMINISHED. ON BIPAP RECENTLY AT 40 PERCENT . OXYGEN SATURATION IS 99 PERCENT. WAS ON ROOM AIR THEN GOT SOB AND PLACED ON BIPAP AND TRANFERED TO 218 THIS AM. ABDOMEN IS ROUND AND SOFT BOWEL SOUNDS ACTIVE X4. WILL CONTINUE TO ASSESS AND MONITOR PER NURSING. CALL LIGHT WITHIN REACH IF NEEDS ASSISTANCE PER NURSING.
--- NOTE | 2021-05-11 05:50 | NUR ---
Assumed pt care at 1900. A/OX4,VSS. C/o right shoulder pain especially with movement. Ice pack/pain meds provided and effective. Up with AX1,RW/GB to BS. Pt was resting quietly w/o any distress through the shift until approx 0420 a few minutes later pt in respiratory distress sats in the lower 80% and very SOA. Oxygen applied at 4L/NC w/o much improvement. Sophia Sneed notified;new orders given for Nebs,ABGs,CXR,Solumededrol,BIPAP. Orders implemented and pt transfered to CCU to 218 in stable condition. All personal items sent with pt, report given Twila RESENDIZ.
[2021-05-11 06:06] LABS: GLYCOHEMOGLOBIN (HGB A1C) 9.7 % (4.8-5.6)
[2021-05-11] MEDS ORDERED: LEVEMIR100 UNIT/1 (13:10)
[2021-05-11] MEDS ORDERED: NOVOLOG100 UNIT/1 SUBQ (13:11)
--- NOTE | 2021-05-11 15:54 | NUR ---
PT ALERT AND ORIENTED. UP IN THE CHAIR THIS SHIFT. ON 2 L N/C SAT ABOVE 95. SOB NOTED WITH ACTIVITY. RT TREATMENT PROVIDED ORDERED. NO RESPIRATORY DISTRESS NOTED.
--- NOTE | 2021-05-11 17:03 | NUR ---
FAXED REFERRAL TO [facility]. WILL CONFIRM THEY RECEIVED WITH POSSIBLE DISCHARGE ON 05/14/21. FAXED TO [facility].
--- NOTE | 2021-05-11 17:24 | NUR ---
Case opened to follow for dc planning. [employer] Operations Engineer visited with the pt at bedside and assist the pt in calling her son Matthew Morocho. Pt admitted with UTI/Fall and shoulder injury. The pt live alone in a sr/low income apt with no steps. She uses a rwalker and has a lift chair. She has had her 2 covid vaccines. She was indep with gait and adl's using her rw. Her family has been helping with her shopping and errands since the pandemic started. She has supportive son/ dtr Olga that both live in town. Therapy evals and recommendations for SNF stay at dc discussed with the pt/son via speaker phone. Both agreeable and options reviewed. The pt was at [facility] last summer and prefers to try a new place. [facility] selected due to location and [facility]. Referral faxed by the dc conference planner to both [facility] and [facility]. Pt will likely be dc ready Friday. Will follow.
[2021-05-11 21:15] VITALS: BP 134/51
[2021-05-12 04:55] VITALS: BP 135/56
[2021-05-12 07:15] VITALS: BP 140/56
[2021-05-12 11:15] VITALS: BP 130/53
[2021-05-12 15:20] VITALS: BP 133/58
--- NOTE | 2021-05-12 16:10 | NUR ---
PT PROGRESSING WELL TOWARDS DISCHARGE GOAL. UP IN THE CHAIR THIS SHIFT. RT TREATMENT PROVIDED ORDERED. NO RESPIRATORY DISTRESS NOTED.
[2021-05-12 20:01] VITALS: BP 130/59
[2021-05-13] VITALS (8 sets, daily range): BP systolic 130–154; BP diastolic 59–64
--- NOTE | 2021-05-13 16:32 | NUR ---
PT CARE ASSUMED AT 0700. ASSESSMENTS CHARTED. MEDICATIONS CHARTED. RFA IV. SINUS RHYTHM. EXTERNAL FEMALE CATHETER. PT PREFERS TO SIT IN CHAIR. POSSIBLE DISCHARGE TO [facility] ON FRIDAY. DIET: CARB CONTROL, ACHS.
[2021-05-14] VITALS (7 sets, daily range): BP systolic 125–141; BP diastolic 50–58
--- NOTE | 2021-05-14 05:42 | NUR ---
PT ALERT AND ORIENTED C/O RIGHT SHOULDER PAIN, TYLENOL OFFERED PT REFUSED. ASSESSMENTS CHARTED, MED GIVEN PER JAN. REMAINS ON RA, O2 SATS STABLE. SINUS BRADYCARDIA ON TELE. NO ACUTE DISTRESS NOTED, PROGRESSING WELL TOWARDS POC.
[2021-05-14 09:32] LABS: CALCIUM 8.6 mg/dL (8.5-10.1); CREATININE 1.4 mg/dL (0.6-1.0); POTASSIUM 3.7 mmol/L (3.5-5.1)
[2021-05-14] MEDS ORDERED: IPRAT-ALBUT 0.5-3 ML INH (12:25)
[2021-05-14] MEDS ORDERED: PROTONIX40 M2 PO (12:25)
[2021-05-14] MEDS ORDERED: HUMALOG100 UNIT/1 SUBQ ×2 (12:25)
--- NOTE | 2021-05-14 14:45 | NUR ---
met with patient and family at bedside. Discussed plan for [facility] and awaiting auth. They are in agreement. At this time no auth.
--- NOTE | 2021-05-14 17:03 | NUR ---
rec auth for [facility]. van for 1800. Notified patient, son and RN. Orders faxed. Chart copied. no further needs.
--- NOTE | 2021-05-14 19:22 | NUR ---
PT CARE ASSUMED AT 0700. ASSESSMENTS CHARTED. MEDICATIONS CHARTED. RFA IV. SINUS RHYTHM. EXTERNAL FEMALE CATHETER. DIET: CARB CONTROL, ACHS. PT DISCHARGED TO [facility]. IV D/C'D. TELEMETRY D/C'D.
== END 2021-05-14 18:15 | DRG 291 ==
LOC: ER 11:14 → EROBS 15:55 → 2N 15:55 → 4W 17:32 → 2N 05-11 05:37
PROVIDERS: Nurse Practitioner; Nurse Practitioner Family; Physician Assistant; ADMIT Hospitalist; ATTEND Hospitalist
PROC: 5A09357 Assistance with Respiratory Ventilation, Less than 24 Consecutive Hours, Continuous Positive Airway Pressure (ICD-10-PCS; principal; 2021-05-11)
DX: I11.0 Hypertensive heart disease with heart failure (principal); I50.31 Acute diastolic (congestive) heart failure; J96.01 Acute respiratory failure with hypoxia; N39.0 Urinary tract infection, site not specified; E44.0 Moderate protein-calorie malnutrition; Z68.41 Body mass index [BMI] 40.0-44.9, adult; J44.1 Chronic obstructive pulmonary disease with (acute) exacerbation; I48.21 Permanent atrial fibrillation; E87.0 Hyperosmolality and hypernatremia; M25.551 Pain in right hip; M25.561 Pain in right knee; E11.9 Type 2 diabetes mellitus without complications; E78.00 Pure hypercholesterolemia, unspecified; E78.5 Hyperlipidemia, unspecified; E86.0 Dehydration; R53.81 Other malaise; W06.XXXA Fall from bed, initial encounter; I25.10 Atherosclerotic heart disease of native coronary artery without angina pectoris; S90.415A Abrasion, left lesser toe(s), initial encounter; R29.6 Repeated falls; E87.8 Other disorders of electrolyte and fluid balance, not elsewhere classified; M25.511 Pain in right shoulder; Z79.01 Long term (current) use of anticoagulants; Z79.899 Other long term (current) drug therapy; Z87.440 Personal history of urinary (tract) infections; Z79.4 Long term (current) use of insulin; Z79.82 Long term (current) use of aspirin; Z88.2 Allergy status to sulfonamides; Z88.8 Allergy status to other drugs, medicaments and biological substances; Z87.891 Personal history of nicotine dependence; Y93.84 Activity, sleeping; Y92.092 Bedroom in other non-institutional residence as the place of occurrence of the external cause; Y99.8 Other external cause status
CPT/HCPCS: 10045; 10081